=== PATIENT | female | born 1985 | race Caucasian/White ===

== ENCOUNTER 2016-06-23 09:19 | Emergency (ER) | payer OTHER ==
[2016-06-23 09:27] VITALS: TEMP 97.7; BMI 31.9
[2016-06-23] MEDS ORDERED: KETOROLAC TROMETHAMINE 30 MG/1 ML VIAL IVPUSH ONE (09:58)
[2016-06-23] MEDS ORDERED: SODIUM CHLORIDE 1,000 ML IV STA (09:58)
[2016-06-23] MEDS ORDERED: ONDANSETRON 4 MG/2 ML VIAL IVPUSH ONE (09:58)
--- NOTE | 2016-06-23 10:14 | PDOC ---
History of Present Illness - General Chief Complaint: Pain, Acute Stated Complaint: Flank pain, decreased urination, pain on urination Time Seen by Provider: 06/23/16 09:50 History Source: Patient Exam Limitations: No Limitations - History of Present Illness Travel History: No Initial Comments: 06/23/16 10:04 31-year-old female presents to ED with complaints of intermittent suprapubic pressure along with dysuria and frequency with a past 2 weeks now radiating to her bilateral flank area for the past 3 days associated with nausea and chills patient denies history of renal colic, UTI, irregular menses, or diarrhea. Patient also denies abdominal distention, diabetes, or recent illness. Timing/Duration: reports: getting worse Quality: reports: moderate, fullness, sharpness Abdominal Pain Onset Location: reports: suprapubic, flank Pain Radiation: reports: no radiation Activities at Onset: reports: none Aggravating Factors: improves with: Voiding Alleviating Factors: improves with: None Past History - Past Medical History Allergies/Adverse Reactions: Allergies Allergy/AdvReac Type Severity Reaction Status Date / Time No Known Allergies Allergy Verified 06/23/16 09:24 Home Medications: Ambulatory Orders Ibuprofen [Motrin -] 400 mg PO QID PRN 06/23/16 Disorders: Yes (,pyelonephritis 2013; nephrolithiasis 2013; freq uti's) Hypercholesterolemia: Yes Kidney Stones: Yes (b/l nephrolithiasis (2013)) - Reproductive History (#): 3 Para: 3 - Psycho/Social/Smoking Cessation Hx Anxiety: No Suicidal Ideation: No Smoking History: Never smoked Have you smoked in the past 12 months: No Information on smoking cessation initiated: No Hx Alcohol Use: No Drug/Substance Use Hx: No Substance Use Type: None Hx Substance Use Treatment: No Review of Systems - Review of Systems Able to Perform ROS?: Yes Constitutional: Yes: Chills, Fever HEENTM: No: Symptoms Reported Respiratory: No: Symptoms reported Cardiac (ROS): No: Symptoms Reported ABD/GI: Yes: Nausea : Yes: Dysuria, Frequency, Flank Pain Musculoskeletal: No: Symptoms Reported Integumentary: No: Symptoms Reported Neurological: No: Symptoms reported Endocrine: No: Symptoms Reported Hematologic/Lymphatic: No: Symptoms Reported *Physical Exam - Vital Signs Last Vital Signs Temp Pulse Resp BP Pulse Ox 97.7 F 81 18 123/80 100 06/23/16 09:22 06/23/16 09:22 06/23/16 09:22 06/23/16 09:22 06/23/16 09:22 - Physical Exam General Appearance: Yes: Nourished, Appropriately Dressed. No: Apparent Distress HEENT: positive: EOMI, MARU. negative: Pale Conjunctivae Neck: positive: Normal Thyroid, Supple Respiratory/Chest: positive: Lungs Clear, Normal Breath Sounds. negative: Respiratory Distress, Accessory Muscle Use Cardiovascular: positive: Regular Rhythm, Regular Rate. negative: Murmur Gastrointestinal/Abdominal: positive: Normal Bowel Sounds, Soft, Tenderness ( bilateral flank and mid suprapubic) Musculoskeletal: positive: CVA Tenderness (R), CVA Tenderness (L) Extremity: negative: Normal Capillary Refill, Pedal Edema Integumentary: positive: Normal Color, Warm, Moist Neurologic: positive: Motor Strength 5/5 (ambulatory) ED Treatment Course - LABORATORY CBC & Chemistry Diagram: 06/23/16 10:20 06/23/16 10:20 Medical Decision Making - Medical Decision Making 06/23/16 10:03 Pt with urinary frequency and pain for the past week now associated with flank pain nausea and chills. Patient had CVA tenderness on exam with normal vital signs. Patient concerning for pyelonephritis versus renal colic. Patient ordered for labs CBC, comp, urinalysis urine urine culture IV fluids, Zofran and Toradol. 06/23/16 11:17 Laboratory Tests 06/23/16 06/23/16 06/23/16 10:20 10:20 10:20 WBC 6.5 Hgb 13.8 D Hct 40.6 D Neutrophils % 54.8 D Sodium 140 Potassium 4.1 Chloride 109 H Carbon Dioxide 26 Anion Gap 5 L BUN 11 D Creatinine 0.6 Creat Clearance w eGFR > 60 Random Glucose 92 D Urine pH 5.0 Urine Ketones Negative Urine Blood 1+ H Urine Nitrite Negative Ur Leukocyte Esterase Negative Urine RBC 2 Urine WBC 2 Urine Bacteria Rare 06/23/16 14:08 CT shows unremarkable liver spleen pancreas gallbladder and adrenal gland. Both kidneys are within normal limits without evidence of hydronephrosis no or ureteral stone. Urinary bladder is partially distended. No stone is seen laying within the urinary bladder and there is no gross thickening of the 12th. Previously visualized mild stranding traumatic changes. Good tone all other seen. There is no evidence for small bowel obstruction . normal appendix and terminal ileum. No evidence of diverticulitis. Normal size uterus. Both ovaries were visualized with small cysts/follicles. Patient states feeling better. Patient be discharged home to follow-up with her PCP and will await urine culture. *DC/Admit/Observation/Transfer Diagnosis at time of Disposition: Bilateral flank pain, Dysuria - Discharge Dispostion Disposition: HOME Condition at time of disposition: Improved - Patient Instructions Printed Discharge Instructions: DI for Flank Pain Additional Instructions: You may receive a call in 2 days with your urine results and if positive you will start antibiotics at that time. Otherwise take Motrin 600 mg for discomfort as prescribed
[2016-06-23 10:31] LABS: URINE APPEARANCE SLCLOUDY; URINE BILIRUBIN NEGATIVE (NEGATIVE); URINE COLOR LTYELLOW; URINE GLUCOSE (UA) NEGATIVE (NEGATIVE); URINE KETONE NEGATIVE (NEGATIVE); URINE LEUK ESTERASE NEGATIVE (NEGATIVE); URINE NITRITE NEGATIVE (NEGATIVE); URINE PROTEIN NEGATIVE (NEGATIVE); URINE UROBILINOGEN NEGATIVE E.U./dl (0.2-1.0)
[2016-06-23 10:41] LABS: URINE BLOOD 1+ (NEGATIVE)
[2016-06-23 10:44] LABS: BASOPHIL 0.3 % (0-2.0); EOSINOPHIL 8.3 % (0-4.5); MCH 28.7 pg (25.7-33.7); MCHC 34.1 g/dl (32.0-36.0); MEAN CELL VOLUME 84.4 fl (80-96); MEAN PLT VOLUME 7.9 fl (7.5-11.1); NEUTROPHILS 54.8 % (42.8-82.8); PLATELET COUNT 220 K/MM3 (134-434); WHITE BLOOD COUNT 6.5 K/mm3 (4.0-10.0)
[2016-06-23 10:45] LABS: URINE BACTERIA RARE /hpf (NONE SEEN); URINE MUCUS RARE; URINE RBC 2 /hpf (0-3); URINE WBC 2 /hpf (3-5)
[2016-06-23 10:54] LABS: ALBUMIN 3.8 g/dl (3.4-5.0); ANION GAP 5 (8-16); CALCIUM 8.6 mg/dL (8.5-10.1); CO2 26 mmol/L (21-32); CREATININE 0.6 mg/dL (0.55-1.02); GLUCOSE,RANDOM 92 mg/dL (74-106); SGOT/AST 16 U/L (15-37); SGPT/ALT 20 U/L (12-78)
[2016-06-23 10:56] LABS: ALK PHOS 77 U/L (45-117); BILIRUBIN,TOTAL 0.4 mg/dL (0.2-1.0); TOT PROT 7.1 g/dl (6.4-8.2)
[2016-06-23 15:04] VITALS: BP 117/74; PULSE 84
--- NOTE | 2016-06-23 16:44 | PDOC ---
*Physical Exam - Vital Signs Last Vital Signs Temp Pulse Resp BP Pulse Ox 97.7 F 84 16 117/74 100 06/23/16 09:22 06/23/16 14:45 06/23/16 14:45 06/23/16 14:45 06/23/16 14:45 ED Treatment Course - LABORATORY CBC & Chemistry Diagram: 06/23/16 10:20 06/23/16 10:20 - ADDITIONAL ORDERS Additional order review: Laboratory Results 06/23/16 06/23/16 10:20 10:20 Sodium 140 Potassium 4.1 Chloride 109 H Carbon Dioxide 26 Anion Gap 5 L BUN 11 D Creatinine 0.6 Creat Clearance w eGFR > 60 Random Glucose 92 D Calcium 8.6 Total Bilirubin 0.4 D AST 16 D ALT 20 D Alkaline Phosphatase 77 D Total Protein 7.1 Albumin 3.8 D Urine Color Ltyellow Urine Appearance Slcloudy Urine pH 5.0 Ur Specific [place] 1.013 Urine Protein Negative Urine Glucose (UA) Negative Urine Ketones Negative Urine Blood 1+ H Urine Nitrite Negative Urine Bilirubin Negative Urine Urobilinogen Negative Ur Leukocyte Esterase Negative Urine RBC 2 Urine WBC 2 Ur Epithelial Cells Few Urine Bacteria Rare Urine Mucus Rare Urine HCG, Qual Negative 06/23/16 10:20 RBC 4.82 D MCV 84.4 MCHC 34.1 RDW 12.0 MPV 7.9 Neutrophils % 54.8 D Lymphocytes % 32.1 Monocytes % 4.5 Eosinophils % 8.3 H D Basophils % 0.3 D - Medications Given in the ED: ED Medications Discontinued Medications Generic Name Dose Route Start Last Admin Trade Name Freq PRN Reason Stop Dose Admin Sodium Chloride 1,000 mls @ 1,000 mls/hr 06/23/16 09:58 06/23/16 10:30 Normal Saline - IV 06/23/16 10:57 1,000 mls/hr ASDIR STA Administration Ketorolac Tromethamine 30 mg 06/23/16 09:58 06/23/16 10:30 Toradol Injection - IVPUSH 06/23/16 09:59 30 mg ONCE ONE Administration Ondansetron HCl 4 mg 06/23/16 09:58 06/23/16 10:30 Zofran Injection IVPUSH 06/23/16 09:59 4 mg ONCE ONE Administration Medical Decision Making - Medical Decision Making 06/23/16 16:44 Pt seen by Midlevel Provider under my direct supervision Ancillary studies reviewed I agree with plan as outlined by Midlevel Provider *DC/Admit/Observation/Transfer Diagnosis at time of Disposition: Bilateral flank pain, Dysuria - Discharge Dispostion Disposition: HOME Condition at time of disposition: Improved - Prescriptions Prescriptions: Ibuprofen [Motrin -] 600 mg PO TID PRN #21 tablet PRN Reason: Pain - Referrals - Patient Instructions Printed Discharge Instructions: DI for Flank Pain Additional Instructions: You may receive a call in 2 days with your urine results and if positive you will start antibiotics at that time. Otherwise take Motrin 600 mg for discomfort as prescribed - Post Discharge Activity
== END 2016-06-23 14:45 | disposition home or self-care (01) ==
LOC: JER 09:19
PROC: 3E0333Z Introduction of Anti-inflammatory into Peripheral Vein, Percutaneous Approach (ICD-10-PCS; principal; 2016-06-23)
PROC: 3E033GC Introduction of Other Therapeutic Substance into Peripheral Vein, Percutaneous Approach (ICD-10-PCS; 2016-06-23)
DX: R10.30 Lower abdominal pain, unspecified (principal)
CPT/HCPCS: 36415; 74176; 80053; 81003; 81015; 84703; 85025; 87086; 99282-25

== ENCOUNTER 2016-11-05 13:25 | Emergency (ER) | payer OTHER ==
[2016-11-05 13:40] VITALS: TEMP 98.6; BMI 34.0
--- NOTE | 2016-11-05 14:07 | PDOC ---
History of Present Illness - General History Source: Patient Exam Limitations: No Limitations - History of Present Illness Initial Comments: 11/05/16 14:17 The patient is a 31 year old female, with a significant past medical history of recurrent UTIs, nephrolithiasis (2013), pyelonephritis (2013) and hypertension, who presents to the emergency department with dizziness, left flank pain and nausea for 2 months. Patient states that her symptoms have progressively worsened which prompted her to present to the ED. Patient states that she has been taking anti inflammatory to alleviate the pain. She reports dysuria. Patient denies vomiting, diarrhea, constipation, dysuria, hematuria, vaginal discharge, vaginal bleeding and abdominal pain. PSH - tubal ligation (8 yrs ago) PCP- Dr. Cox <Shira Laurent - Last Filed: 11/05/16 14:17> - General History Source: Patient, Old Records Exam Limitations: No Limitations <Lian Escobedo - Last Filed: 11/05/16 16:21> - General Chief Complaint: Pain Stated Complaint: BACK PAIN Time Seen by Provider: 11/05/16 14:06 Past History <Shira Laurent - Last Filed: 11/05/16 14:17> - Past Medical History Disorders: Yes (,pyelonephritis 2013; nephrolithiasis 2013; freq uti's) Hypercholesterolemia: Yes Kidney Stones: Yes (b/l nephrolithiasis (2013)) - Reproductive History (#): 3 Para: 3 - Psycho/Social/Smoking Cessation Hx Anxiety: No Suicidal Ideation: No Smoking History: Never smoked Have you smoked in the past 12 months: No Information on smoking cessation initiated: No Hx Alcohol Use: No Drug/Substance Use Hx: No Substance Use Type: None Hx Substance Use Treatment: No <Lian Escobedo - Last Filed: 11/05/16 16:21> - Past Medical History Allergies/Adverse Reactions: Allergies Allergy/AdvReac Type Severity Reaction Status Date / Time No Known Allergies Allergy Verified 11/05/16 13:38 Home Medications: Ambulatory Orders Ibuprofen [Motrin -] 400 mg PO QID PRN 06/23/16 Ibuprofen [Motrin -] 600 mg PO TID PRN #21 tablet 06/23/16 Review of Systems - Review of Systems Able to Perform ROS?: Yes Comments:: 11/05/16 14:18 GENERAL/CONSTITUTIONAL: No fever or chills. No weakness. HEAD, EYES, EARS, NOSE AND THROAT: No change in vision. No ear pain or discharge. No sore throat. CARDIOVASCULAR: No chest pain or shortness of breath. RESPIRATORY: No cough, wheezing, or hemoptysis. GASTROINTESTINAL: (+)nausea. No vomiting, diarrhea or constipation. GENITOURINARY: No dysuria, frequency, or change in urination. MUSCULOSKELETAL: (+) left flank pain. No joint or muscle swelling or pain. No neck. SKIN: No rash NEUROLOGIC:(+)dizziness. No headache, vertigo, loss of consciousness, or change in strength/sensation. ENDOCRINE: No increased thirst. No abnormal weight change. HEMATOLOGIC/LYMPHATIC: No anemia, easy bleeding, or history of blood clots. ALLERGIC/IMMUNOLOGIC: No hives or skin allergy. <Shira Laurent - Last Filed: 11/05/16 14:17> *Physical Exam - Vital Signs Last Vital Signs Temp Pulse Resp BP Pulse Ox 98.6 F 73 18 150/90 100 11/05/16 13:38 11/05/16 13:38 11/05/16 13:38 11/05/16 13:38 11/05/16 13:38 - Physical Exam Comments: 11/05/16 14:19 GENERAL: Awake, alert, and fully oriented, in no acute distress HEAD: No signs of trauma EYES: PERRLA, EOMI, sclera anicteric, conjunctiva clear ENT: Auricles normal inspection, hearing grossly normal, nares patent, oropharynx clear without exudates. Moist mucosa NECK: Normal ROM, supple, no lymphadenopathy, JVD, or masses LUNGS: Breath sounds equal, clear to auscultation bilaterally. No wheezes, and no crackles HEART: Regular rate and rhythm, normal S1 and S2, no murmurs, rubs or gallops ABDOMEN: Soft, nontender, normoactive bowel sounds. No guarding, no rebound. No masses EXTREMITIES: Normal range of motion, no edema. No clubbing or cyanosis. No cords, erythema, or tenderness NEUROLOGICAL: Cranial nerves II through XII grossly intact. Normal speech, normal gait SKIN: Warm, Dry, normal turgor, no rashes or lesions noted. <Shira Laurent - Last Filed: 11/05/16 14:17> - Vital Signs Last Vital Signs Temp Pulse Resp BP Pulse Ox 98.6 F 73 18 150/90 100 11/05/16 13:38 11/05/16 13:38 11/05/16 13:38 11/05/16 13:38 11/05/16 13:38 <Lian Escobedo - Last Filed: 11/05/16 16:21> ED Treatment Course - LABORATORY CBC & Chemistry Diagram: 11/05/16 14:14 11/05/16 14:14 <Lian Escobedo - Last Filed: 11/05/16 16:21> Medical Decision Making - Medical Decision Making 11/05/16 14:25 31-year-old female with no past medical history presents to the emergency Department with complaints of 2 week history of dizziness, dysuria, intermittent nausea and right flank pain. She has had a BTL 8 years ago. Differential diagnosis includes but is not limited to: UTI, pyelonephritis, ovarian cyst, musculoskeletal pain, dehydration, toxic/metabolic derangement. Plan: 1. Labs 2. Urine analysis 3. Pain management 4. Antiemetics 5. Observe and reevaluate 11/05/16 16:19 Addendum: Labs are reviewed and are noted in the EMR. Urine analysis is negative. The patient had a CT scan of the abdomen and pelvis which was negative for acute intra-abdominal or pelvic pathology. The patient was reevaluated at this time and is feeling improved. The plan is to discharge home. Follow-up with primary care physician within the next 1-3 days and return to the ED if her symptoms persist, worsen, or new symptoms arise. <Lian Escobedo - Last Filed: 11/05/16 16:21> *DC/Admit/Observation/Transfer - Attestations Scribe Attestion: 11/05/16 14:19 Documentation prepared by RENAN Slaughter, acting as medical coordinator pesticide use for Lian Escobedo MD. <Shira Laurent - Last Filed: 11/05/16 14:17> - Discharge Dispostion Admit: No - Attestations Physician Attestion: 11/05/16 14:26 I, Dr. Lian Escobedo, attest that the scribes documentation that appears above has been prepared under my direction and personally reviewed by me in its entirety. I confirmed that the note above accurately reflects all work, treatment, procedures, and medical decision-making performed by me. <Lian Escobedo - Last Filed: 11/05/16 16:21> Diagnosis at time of Disposition: Right flank pain - Discharge Dispostion Disposition: HOME Condition at time of disposition: Stable - Patient Instructions Printed Discharge Instructions: DI for Low Back Pain Additional Instructions: Please follow-up with your primary care doctor within the next 1-3 days. Return to the emergency department if your symptoms persist, worsen, or new symptoms arise.
[2016-11-05] MEDS ORDERED: KETOROLAC TROMETHAMINE 30 MG/1 ML VIAL IVPUSH ONE (14:13)
[2016-11-05] MEDS ORDERED: SODIUM CHLORIDE 1,000 ML IV STA (14:13)
[2016-11-05] MEDS ORDERED: ONDANSETRON 4 MG/2 ML VIAL IVPUSH ONE (14:13)
[2016-11-05] MEDS ORDERED: KETOROLAC TROMETHAMINE 30 MG/1 ML VIAL ONE (14:15)
[2016-11-05] MEDS ORDERED: ONDANSETRON 4 MG/2 ML VIAL ONE (14:15)
[2016-11-05 14:32] LABS: BASOPHIL 0.5 % (0-2.0); EOSINOPHIL 5.4 % (0-4.5); MCH 29.5 pg (25.7-33.7); MCHC 34.9 g/dl (32.0-36.0); MEAN CELL VOLUME 84.4 fl (80-96); MEAN PLT VOLUME 7.6 fl (7.5-11.1); NEUTROPHILS 58.3 % (42.8-82.8); PLATELET COUNT 210 K/MM3 (134-434); RDW 12.1 % (11.6-15.6); WHITE BLOOD COUNT 8.6 K/mm3 (4.0-10.0)
[2016-11-05 14:33] LABS: URINE APPEARANCE SLCLOUDY; URINE BILIRUBIN NEGATIVE (NEGATIVE); URINE BLOOD NEGATIVE (NEGATIVE); URINE COLOR YELLOW; URINE GLUCOSE (UA) NEGATIVE (NEGATIVE); URINE KETONE NEGATIVE (NEGATIVE); URINE LEUK ESTERASE NEGATIVE (NEGATIVE); URINE NITRITE NEGATIVE (NEGATIVE); URINE PROTEIN NEGATIVE (NEGATIVE); URINE UROBILINOGEN NEGATIVE E.U./dl (0.2-1.0)
[2016-11-05 14:52] LABS: CALCIUM 9.1 mg/dL (8.5-10.1); COCKROFT - GAULT 186.745; CREATININE 0.6 mg/dL (0.55-1.02); MAGNESIUM 2.2 mg/dL (1.8-2.4); PHOSPHOROUS 3.4 mg/dL (2.5-4.9)
[2016-11-05 16:34] VITALS: BP 128/74; PULSE 78
== END 2016-11-05 16:35 | disposition home or self-care (01) ==
LOC: JER 13:25
PROC: 3E0333Z Introduction of Anti-inflammatory into Peripheral Vein, Percutaneous Approach (ICD-10-PCS; principal; 2016-11-05)
PROC: 3E033GC Introduction of Other Therapeutic Substance into Peripheral Vein, Percutaneous Approach (ICD-10-PCS; 2016-11-05)
DX: R10.31 Right lower quadrant pain (principal); Z87.440 Personal history of urinary (tract) infections; Z87.442 Personal history of urinary calculi
CPT/HCPCS: 36415; 74176-TC; 80048; 81003; 83735; 84100; 84703; 85025; 87086; 96374; 96375; 99285-25

== ENCOUNTER 2017-11-21 20:03 | Emergency (ER) | payer OTHER ==
[2017-11-21 20:11] VITALS: BP 119/69; PULSE 69; TEMP 98; BMI 26.6
--- NOTE | 2017-11-21 20:23 | PDOC ---
History of Present Illness - General Chief Complaint: Pain, Acute Stated Complaint: PAIN Time Seen by Provider: 11/21/17 20:14 - History of Present Illness Initial Comments: 11/21/17 20:21 31 yo F with h/o HTN, recurrent UTIs, nephrolithiasis (2013), pyelonephritis ( 2013) and, who p/w RLQ pain. Patient reports acute onset intermittent, crampy, RLQ pain and R flank pain x 2 weeks. No identifiable triggers or alleviators. Reports 3 episodes of non bilious non bloody emesis today. LMP 11/07. Denies F/C, CP, SOB, diarrhea, constipation, BPR, urinary complaints, vaginal bleeding/discharge, hematuria, weakness, lightheadedness, sensory changes. PMHx: as noted above. H/o tubal ligation (9 yrs ago). ROS: as noted above SHx: Denies Etoh, IVDA, tobacco use. Allergies: NKDA Past History - Past Medical History Allergies/Adverse Reactions: Allergies Allergy/AdvReac Type Severity Reaction Status Date / Time No Known Allergies Allergy Verified 11/21/17 20:06 Home Medications: Ambulatory Orders Ibuprofen [Motrin -] 400 mg PO QID PRN 06/23/16 Ibuprofen [Motrin -] 600 mg PO TID PRN #21 tablet 06/23/16 COPD: No Disorders: Yes (,pyelonephritis 2013; nephrolithiasis 2013; freq uti's) Hypercholesterolemia: Yes Kidney Stones: Yes (b/l nephrolithiasis (2013)) - Reproductive History (#): 3 Para: 3 - Suicide/Smoking/Psychosocial Hx Smoking History: Never smoked Have you smoked in the past 12 months: No Hx Alcohol Use: No Drug/Substance Use Hx: No Substance Use Type: None Hx Substance Use Treatment: No Review of Systems - Review of Systems Comments:: 11/21/17 20:22 GENERAL/CONSTITUTIONAL: No fever or chills. No weakness. HEAD, EYES, EARS, NOSE AND THROAT: No change in vision. No ear pain or discharge. No sore throat. CARDIOVASCULAR: No chest pain or shortness of breath RESPIRATORY: + nausea, vomiting, and abdominal pain. No diarrhea or constipation. GENITOURINARY: No dysuria, frequency, or change in urination. MUSCULOSKELETAL: No joint or muscle swelling or pain. No neck or back pain. SKIN: No rash NEUROLOGIC: No headache, vertigo, loss of consciousness, or change in strength/ sensation. ENDOCRINE: No increased thirst. No abnormal weight change HEMATOLOGIC/LYMPHATIC: No anemia, easy bleeding, or history of blood clots. ALLERGIC/IMMUNOLOGIC: No hives or skin allergy. *Physical Exam - Vital Signs Last Vital Signs Temp Pulse Resp BP Pulse Ox 98 F 69 20 119/69 98 11/21/17 20:06 11/21/17 20:06 11/21/17 20:06 11/21/17 20:06 11/21/17 20:06 - Physical Exam Comments: 11/21/17 20:22 GENERAL: Awake, alert, and fully oriented, in no acute distress HEAD: No signs of trauma, normocephalic, atraumatic EYES: PERRLA, EOMI, sclera anicteric, conjunctiva clear ENT: Hearing grossly normal, nares patent, oropharynx clear without exudates. Moist mucosa NECK: Normal ROM, supple, no lymphadenopathy, JVD, or masses LUNGS: No distress, speaks full sentences, clear to auscultation bilaterally HEART: Regular rate and rhythm, normal S1 and S2, no murmurs, rubs or gallops, peripheral pulses normal and equal bilaterally. ABDOMEN: + RLQ and R CVA ttp. Soft, normoactive bowel sounds. No guarding, no rebound. No masses. EXTREMITIES : Normal inspection, Normal range of motion, no edema. No clubbing or cyanosis. SKIN: Warm, Dry, normal turgor, no rashes or lesions noted ED Treatment Course - LABORATORY CBC & Chemistry Diagram: 11/21/17 21:30 11/21/17 21:30 Medical Decision Making - Medical Decision Making 11/21/17 21:32 31 yo F with h/o HTN, recurrent UTIs, nephrolithiasis (2013), pyelonephritis ( 2013) and, who p/w RLQ, R flank pain, and multiple episodes of emesis. VSS, AF. + RLQ and R CVA ttp. Possible nephrolithiasis vs. cystitis. Differential also includes pyelonephritis, colitis, appendicitis, ovarian pathology. Pain control , IVF, and abdominal imaging. ED Course. CBC, CMP, UA, Urine Preg CT AP- SPIRAL NS, Zofran, Toradol 11/21/17 22:10 CBC,CMP: Unremarkable 11/21/17 22:11 UA: 1 + Blood, 2 RBC, nitirite Neg Pt. signed out to night team. VSS. *DC/Admit/Observation/Transfer - Referrals Referrals: Sana Lauren MD [Primary Care Provider] - - Patient Instructions Additional Instructions: Please return to the emergency department with any new or worsening symptoms or concerns. Please follow up with your primary care physician within 72 hours. - Post Discharge Activity - Attestations Physician Attestion: 11/21/17 20:23 I attest to the information provided in this note.
[2017-11-21 20:38] LABS: URINE APPEARANCE CLEAR; URINE BILIRUBIN NEGATIVE (<2.0 mg/dL); URINE BLOOD 1+ (NEGATIVE); URINE COLOR LTYELLOW; URINE GLUCOSE (UA) NEGATIVE (NEGATIVE); URINE KETONE NEGATIVE (NEGATIVE); URINE LEUK ESTERASE NEGATIVE (NEGATIVE); URINE NITRITE NEGATIVE (NEGATIVE); URINE PROTEIN NEGATIVE (NEGATIVE); URINE UROBILINOGEN NEGATIVE mg/dL (0.2-1.0)
[2017-11-21 20:48] LABS: HCG,QUALITATIVE URINE NEGATIVE
[2017-11-21 20:55] LABS: EPI CELLS RARE /HPF (FEW); URINE MUCUS RARE
--- NOTE | 2017-11-21 21:12 | PDOC ---
Attending Attestation - HPI HPI: 11/21/17 21:13 The patient is a 32 year old female with a significant PMH of HTN, recurrent UTIs, nephrolithiasis (2013), pyelonephritis (2014) who presents to the emergency department with right flank pain. The patient describes the right flank pain as intermittent, mild in severity, with radiation to the right groin and associated nausea and vomiting. The patient reports a history of kidney stones in the past. The patient denies chest pain, shortness of breath, headache and dizziness. Denies fever, chills, diarrhea and constipation. Denies dysuria, frequency, urgency and hematuria. Allergies: NKA Past surgical history: H/o tubal ligation (9 yrs ago) Social history: No reported alcohol, drug, or cigarette use. PCP: Dr. Lauren - Physicial Exam PE: 11/21/17 21:13 GENERAL: Well-appearing, well-nourished. No apparent distress. HEENT: Normocephalic, atraumatic. PERRL, EOM intact. CARDIOVASCULAR: Normal S1, S2. Regular rate and rhythm. PULMONARY: Clear to auscultation bilaterally. ABDOMEN: Soft, non-distended, non-tender. BACK: (+) Mild tenderness to the right flank. EXTREMITIES: Normal ROM in all four extremities. No gross deformities. SKIN: Warm, dry. No rash NEUROLOGICAL: No focal neurological deficits. - Medical Decision Making 11/21/17 23:19 Imaging: Spiral-Renal CT scan Reported by: Dr. Tristan Impression: No evidence of urinary tract calculi or obstructive uropathy. Free fluid is identified within the cul-de-sac. The possibility of a ruptured ovarian cyst should be considered.
[2017-11-21] MEDS ORDERED: ONDANSETRON 4 MG/2 ML VIAL IVPUSH ONE (21:32)
[2017-11-21] MEDS ORDERED: KETOROLAC TROMETHAMINE 30 MG/1 ML VIAL IVPUSH ONE (21:32)
[2017-11-21] MEDS ORDERED: SODIUM CHLORIDE 1,000 ML IV STA (21:33)
[2017-11-21 21:39] LABS: BASO % 0.5 % (0-2.0); EOS % 8.4 % (0-4.5); HEMATOCRIT 37.9 % (32.4-45.2); HEMOGLOBIN 13.1 GM/dL (10.7-15.3); MCH 29.7 pg (25.7-33.7); MCHC 34.5 g/dl (32.0-36.0); MEAN CELL VOLUME 86.3 fl (80-96); MEAN PLT VOLUME 7.8 fl (7.5-11.1); MONO % 6.2 % (3.8-10.2); NEUT % 49.9 % (42.8-82.8); PLATELET COUNT 222 K/MM3 (134-434); RBC 4.39 M/mm3 (3.60-5.2); RDW 11.7 % (11.6-15.6); WHITE BLOOD COUNT 8.8 K/mm3 (4.0-10.0)
[2017-11-21] MEDS ORDERED: ONDANSETRON 4 MG/2 ML VIAL ONE (21:40)
[2017-11-21] MEDS ORDERED: KETOROLAC TROMETHAMINE 30 MG/1 ML VIAL ONE (21:40)
[2017-11-21 22:01] LABS: ALBUMIN 3.6 g/dl (3.4-5.0); ALK PHOS 76 U/L (45-117); ANION GAP 5 (8-16); BILIRUBIN,TOTAL 0.5 mg/dL (0.2-1.0); BLOOD UREA NITROGEN 20 mg/dL (7-18); CALCIUM 8.5 mg/dL (8.5-10.1); CHLORIDE 110 mmol/L (98-107); CO2 27 mmol/L (21-32); CREATININE 0.7 mg/dL (0.55-1.02); GLUCOSE,RANDOM 86 mg/dL (74-106); POTASSIUM 3.9 mmol/L (3.5-5.1); SGOT/AST 17 U/L (15-37); SGPT/ALT 18 U/L (12-78); SODIUM 142 mmol/L (136-145); TOT PROT 6.6 g/dl (6.4-8.2)
--- NOTE | 2017-11-22 01:21 | PDOC ---
*Physical Exam - Vital Signs Last Vital Signs Temp Pulse Resp BP Pulse Ox 98 F 69 20 119/69 98 11/21/17 20:06 11/21/17 20:06 11/21/17 20:06 11/21/17 20:06 11/21/17 20:06 ED Treatment Course - LABORATORY CBC & Chemistry Diagram: 11/21/17 21:30 11/21/17 21:30 - ADDITIONAL ORDERS Additional order review: Laboratory Results 11/21/17 11/21/17 21:30 20:13 Sodium 142 Potassium 3.9 Chloride 110 H Carbon Dioxide 27 Anion Gap 5 L BUN 20 H Creatinine 0.7 Creat Clearance w eGFR > 60 Random Glucose 86 Calcium 8.5 Total Bilirubin 0.5 D AST 17 ALT 18 Alkaline Phosphatase 76 Total Protein 6.6 Albumin 3.6 Urine Color Ltyellow Urine Appearance Clear Urine pH 6.0 Ur Specific [place] 1.016 Urine Protein Negative Urine Glucose (UA) Negative Urine Ketones Negative Urine Blood 1+ H Urine Nitrite Negative Urine Bilirubin Negative Urine Urobilinogen Negative Ur Leukocyte Esterase Negative Urine WBC (Auto) 4 Urine RBC (Auto) 2 Ur Epithelial Cells Rare Urine Mucus Rare Urine HCG, Qual Negative 11/21/17 21:30 RBC 4.39 MCV 86.3 MCHC 34.5 RDW 11.7 MPV 7.8 Neutrophils % 49.9 Lymphocytes % 35.0 Monocytes % 6.2 Eosinophils % 8.4 H Basophils % 0.5 - RADIOLOGY Radiology Studies Ordered: Category Date Time Status TRANSVAGINAL ULTRASOUND US [US] Stat Ultrasound 11/21/17 23:21 Taken - Medications Given in the ED: ED Medications Discontinued Medications Generic Name Dose Route Start Last Admin Trade Name Arnelq PRN Reason Stop Dose Admin Sodium Chloride 1,000 mls @ 1,000 mls/hr 11/21/17 21:33 11/21/17 21:43 Normal Saline - IV 11/21/17 22:32 1,000 mls/hr ASDIR STA Administration Ketorolac Tromethamine 30 mg 11/21/17 21:32 11/21/17 21:43 Toradol Injection - IVPUSH 11/21/17 21:33 30 mg ONCE ONE Administration Ondansetron HCl 4 mg 11/21/17 21:32 11/21/17 21:43 Zofran Injection IVPUSH 11/21/17 21:33 4 mg ONCE ONE Administration Medical Decision Making - Medical Decision Making 11/22/17 01:20 Transvaginal ultrasound showed a normal arterial and venous flow to both ovaries. There was a 3 cm left ovarian cyst with a small to moderate amount pelvic fluid , possibly partial cysts collapsed without any torsion CAT scan did not show any acute pathology, patient didn't have a fever, chills, patient has no elevated white count, and she does have ultrasound that shows findings that are consistent with left ovarian cyst rupture *DC/Admit/Observation/Transfer Diagnosis at time of Disposition: Right flank pain Ovarian cyst Qualifiers: Laterality: left Qualified Code(s): N83.202 - Unspecified ovarian cyst, left side - Discharge Dispostion Disposition: HOME Condition at time of disposition: Stable - Referrals Referrals: Sana Lauren MD [Primary Care Provider] - - Patient Instructions Printed Discharge Instructions: DI for Low Back Pain, DI for Ovarian Cyst Additional Instructions: Please return to the emergency department with any new or worsening symptoms or concerns. follow up with your internal recruiter - Post Discharge Activity
[2017-11-22] MEDS ORDERED: CYCLOBENZAPRINE HCL 10 MG TABLET (FP) PO ONE (01:28)
[2017-11-22] MEDS ORDERED: CYCLOBENZAPRINE HCL 10 MG TABLET (FP) ONE (01:29)
== END 2017-11-22 01:41 | disposition home or self-care (01) ==
LOC: JER 20:03
PROC: 3E0333Z Introduction of Anti-inflammatory into Peripheral Vein, Percutaneous Approach (ICD-10-PCS; principal; 2017-11-21)
PROC: 3E033GC Introduction of Other Therapeutic Substance into Peripheral Vein, Percutaneous Approach (ICD-10-PCS; 2017-11-21)
DX: N83.202 Unspecified ovarian cyst, left side (principal); Z87.442 Personal history of urinary calculi; Z87.440 Personal history of urinary (tract) infections; I10 Essential (primary) hypertension
CPT/HCPCS: 36415; 74176; 76830-TC; 80053; 81003; 81015; 84703; 85025; 96374; 96375; 99282-25; J7030

== ENCOUNTER 2018-12-18 20:40 | Emergency (ER) | payer OTHER ==
[2018-12-18 20:44] VITALS: BMI 28.6
--- NOTE | 2018-12-18 20:49 | PDOC ---
Rapid Medical Evaluation Time Seen by Provider: 12/18/18 20:41 Medical Evaluation: Allergies Allergy/AdvReac Type Severity Reaction Status Date / Time No Known Allergies Allergy Verified 11/21/17 20:06 12/18/18 20:41 Pt presents for fever, body aches and back pain s/p surgery 2 weeks for breast reduction and liposuction. She states that she also has upper back pain. Exam: (+) CVA tenderness b/l. Liposuction scars noted on the back, feel warm to the touch. Orders: labs, urine, ekg Pt to proceed to the ER for further evaluation Discharge Disposition - Diagnosis Bilateral flank pain - Referrals - Patient Instructions - Post Discharge Activity
[2018-12-18 22:17] LABS: BASO % 0.4 % (0-2.0); EOS % 1.5 % (0-4.5); HEMATOCRIT 34.9 % (32.4-45.2); HEMOGLOBIN 11.5 GM/dL (10.7-15.3); LYMPH % 17.7 % (8-40); MCH 29.8 pg (25.7-33.7); MEAN CELL VOLUME 90.2 fl (80-96); MEAN PLT VOLUME 7.4 fl (7.5-11.1); MONO % 7.3 % (3.8-10.2); NEUT % 73.1 % (42.8-82.8); PLATELET COUNT 235 K/MM3 (134-434); RBC 3.87 M/mm3 (3.60-5.2); RDW 13.7 % (11.6-15.6); WHITE BLOOD COUNT 8.2 K/mm3 (4.0-10.0)
[2018-12-18 22:38] LABS: ALBUMIN 2.9 g/dl (3.4-5.0); BILIRUBIN,TOTAL 0.5 mg/dL (0.2-1); BLOOD UREA NITROGEN 8.8 mg/dL (7-18); CREATININE 0.6 mg/dL (0.55-1.3); POTASSIUM 4.1 mmol/L (3.5-5.1); TOT PROT 5.9 g/dl (6.4-8.2)
[2018-12-18 22:39] LABS: INR 0.97 (0.83-1.09); PROTHROMBIN TIME (PATIENT) 11.5 SEC (9.7-13.0)
[2018-12-18 22:52] LABS: PH,URINE 5.5 (5.0-8.0); URINE APPEARANCE CLEAR; URINE BILIRUBIN NEGATIVE (NEGATIVE); URINE COLOR YELLOW; URINE GLUCOSE (UA) NEGATIVE (NEGATIVE); URINE KETONE NEGATIVE (NEGATIVE); URINE LEUK ESTERASE NEGATIVE (NEGATIVE); URINE NITRITE NEGATIVE (NEGATIVE); URINE PROTEIN NEGATIVE (NEGATIVE); URINE UROBILINOGEN 0.2 mg/dL (0.2-1.0)
--- NOTE | 2018-12-18 23:03 | PDOC ---
History of Present Illness - General Chief Complaint: SIRS, Suspected/Possible Stated Complaint: FEVER Time Seen by Provider: 12/18/18 20:41 History Source: Patient, Spouse Exam Limitations: Language Barrier (belarusian speaking, limited icelandic) - History of Present Illness Initial Comments: 12/18/18 23:42 Toan Roman is a 33yo previously healthy female presenting with breast and abdominal pain. She underwent breast reduction surgery and liposuction 2 weeks ago in [place]. No plastics follow up scheduled. Currently endorses subjective fevers, generalized weakness, body aches, and sharp stabbing pain around breasts, abdomen, and back. Took tylenol and tetracycline post surgery without symptom relief. No nausea, urinary/bowel changes. Past History - Past Medical History Allergies/Adverse Reactions: Allergies Allergy/AdvReac Type Severity Reaction Status Date / Time No Known Allergies Allergy Verified 12/18/18 20:44 Home Medications: Ambulatory Orders Ibuprofen [Motrin -] 400 mg PO QID PRN 06/23/16 Ibuprofen [Motrin -] 600 mg PO TID PRN #21 tablet 06/23/16 COPD: No Disorders: Yes (,pyelonephritis 2013; nephrolithiasis 2013; freq uti's) Hypercholesterolemia: Yes Kidney Stones: Yes (b/l nephrolithiasis (2013)) - Surgical History Abdominal Surgery: Yes (breast reduction, liposuction) - Reproductive History (#): 3 Para: 3 - Suicide/Smoking/Psychosocial Hx Smoking History: Never smoked Have you smoked in the past 12 months: No Hx Alcohol Use: No Drug/Substance Use Hx: No Substance Use Type: None Hx Substance Use Treatment: No Review of Systems - Review of Systems Able to Perform ROS?: Yes Is the patient limited Czech proficient: Yes Constitutional: Yes: Chills, Fever, Malaise. No: Loss of Appetite HEENTM: No: Eye Pain, Ear Pain, Nose Pain Respiratory: No: Cough, Shortness of Breath Cardiac (ROS): Yes: Chest Pain (around breast surgery incision sites). No: Edema, Palpitations, Chest Tightness ABD/GI: No: Constipated, Diarrhea, Nausea, Poor Appetite, Vomiting : No: Burning, Dysuria, Pain Musculoskeletal: Yes: Back Pain (around liposuction sites), Muscle Weakness. No : Muscle Pain Integumentary: Yes: Change in Color (black scabbing/scarring at incision sites) . No: Flushing, Pruritus, Rash Neurological: No: Headache, Numbness, Paresthesia Endocrine: No: Increased Thirst, Increased Urine *Physical Exam - Vital Signs Last Vital Signs Temp Pulse Resp BP Pulse Ox 98.7 F 108 H 18 116/77 97 12/18/18 20:41 12/18/18 20:41 12/18/18 20:41 12/18/18 20:41 12/18/18 20:41 - Physical Exam General Appearance: Yes: Nourished, Moderate Distress (shaking, lying in bed) HEENT: positive: MARU, Normal Voice. negative: Nasal Congestion Respiratory/Chest: positive: Chest Tender (black scabbing/scarred incision sites extending below areola bilaterally to below breast tissue ), Lungs Clear, Normal Breath Sounds. negative: Respiratory Distress, Crackles, Rales, Wheezing Cardiovascular: positive: Regular Rhythm, Regular Rate, S1, S2. negative: Murmur Gastrointestinal/Abdominal: positive: Normal Bowel Sounds, Tender (moderate tenderness to deep palpation throghout abdomen, specifically in RUQ. Tender to palpation around liposuction incision sites ), Flat, Soft. negative: Organomegaly, Guarding, Rebound Integumentary: positive: Normal Color, Warm. negative: Erythema, Diaphoresis, Rash, Swelling Neurologic: positive: Alert, Responsive. negative: Confused ED Treatment Course - LABORATORY CBC & Chemistry Diagram: 12/18/18 22:00 12/18/18 22:00 - ADDITIONAL ORDERS Additional order review: Laboratory Results 12/18/18 12/18/18 12/18/18 22:25 22:00 22:00 PT with INR 11.50 INR 0.97 Sodium 141 Potassium 4.1 Chloride 109 H Carbon Dioxide 28 Anion Gap 5 L BUN 8.8 Creatinine 0.6 Est GFR (CKD-EPI)AfAm 138.80 Est GFR (CKD-EPI)NonAf 119.76 Random Glucose 100 Calcium 8.0 L Total Bilirubin 0.5 AST 19 ALT 22 Alkaline Phosphatase 76 Total Protein 5.9 L Albumin 2.9 L Urine Color Yellow Urine Appearance Clear Urine pH 5.5 Ur Specific [place] 1.016 Urine Protein Negative Urine Glucose (UA) Negative Urine Ketones Negative Urine Blood Negative Urine Nitrite Negative Urine Bilirubin Negative Urine Urobilinogen 0.2 Ur Leukocyte Esterase Negative 12/18/18 22:00 RBC 3.87 MCV 90.2 MCHC 33.0 RDW 13.7 D MPV 7.4 L Neutrophils % 73.1 D Lymphocytes % 17.7 D Monocytes % 7.3 Eosinophils % 1.5 D Basophils % 0.4 Medical Decision Making - Critical Care Time Total Critical Care Time (minutes): 30 Critical Care Statement: The care of this patient involved high complexity decision making to prevent further life threatening deterioration of the patient 's condition and/or to evaluate & treat vital organ system(s) failure or risk of failure. - Medical Decision Making 12/18/18 23:43 Triage ordered CBC, chem, UA, HCG - returned normal Ordered rectal temp, cultures for fever, tachycardia. Ordered breast US, RUQ US where exquisitely tender. Given tylenol for pain Plan to call plastics, anticipate transferring to another facility with plastics. Toan Roman is a 33yo previously healthy female presenting with breast and abdominal pain. She underwent breast reduction surgery and liposuction 2 weeks ago in [place]. Currently endorses subjective fevers, generalized weakness , body aches, and sharp stabbing pain around breasts, abdomen, and back. Suspect sepsis secondary to cellulitis from breast/liposuction surgery complications based on fever, tachycardia, tenderness around incision surgery sites. Ultrasound ordered for concern for abscess and foreign body. Waiting for CXR, breast/RUQ results. Awaiting call from plastics. Signed out to QUEENIE Fernandez Resident Anticipate transfer to another facility for sepsis management and plastics surgery correction. *DC/Admit/Observation/Transfer Diagnosis at time of Disposition: Abdominal pain, acute, generalized - Referrals Referrals: Sapphire Ayala MD [Primary Care Provider] - - Patient Instructions - Post Discharge Activity
[2018-12-18 23:24] LABS: HCG,QUALITATIVE URINE Negative
[2018-12-18] MEDS ORDERED: ACETAMINOPHEN 1000 MG/100 ML VIAL (NON FORMULARY) IVPB ONE (23:31)
[2018-12-19] MEDS ORDERED: ACETAMINOPHEN INJECTION 100 ML IVPB ONE (00:03)
--- NOTE | 2018-12-19 00:20 | PDOC ---
*Physical Exam - Vital Signs Last Vital Signs Temp Pulse Resp BP Pulse Ox 98.7 F 108 H 18 116/77 97 12/18/18 20:41 12/18/18 20:41 12/18/18 20:41 12/18/18 20:41 12/18/18 20:41 ED Treatment Course - LABORATORY CBC & Chemistry Diagram: 12/18/18 22:00 12/18/18 22:00 - ADDITIONAL ORDERS Additional order review: Laboratory Results 12/18/18 12/18/18 12/18/18 22:25 22:00 22:00 PT with INR 11.50 INR 0.97 Sodium 141 Potassium 4.1 Chloride 109 H Carbon Dioxide 28 Anion Gap 5 L BUN 8.8 Creatinine 0.6 Est GFR (CKD-EPI)AfAm 138.80 Est GFR (CKD-EPI)NonAf 119.76 Random Glucose 100 Calcium 8.0 L Total Bilirubin 0.5 AST 19 ALT 22 Alkaline Phosphatase 76 Total Protein 5.9 L Albumin 2.9 L Urine Color Yellow Urine Appearance Clear Urine pH 5.5 Ur Specific [place] 1.016 Urine Protein Negative Urine Glucose (UA) Negative Urine Ketones Negative Urine Blood Negative Urine Nitrite Negative Urine Bilirubin Negative Urine Urobilinogen 0.2 Ur Leukocyte Esterase Negative Urine HCG, Qual Negative 12/18/18 22:00 RBC 3.87 MCV 90.2 MCHC 33.0 RDW 13.7 D MPV 7.4 L Neutrophils % 73.1 D Lymphocytes % 17.7 D Monocytes % 7.3 Eosinophils % 1.5 D Basophils % 0.4 - RADIOLOGY Radiology Studies Ordered: Category Date Time Status CHEST PA & LAT [RAD] Stat Radiology 12/18/18 23:42 Ordered ABDOMEN US -LIMITED [US] Stat Ultrasound 12/19/18 23:41 Ordered - Medications Given in the ED: ED Medications Discontinued Medications Generic Name Dose Route Start Last Admin Trade Name Freq PRN Reason Stop Dose Admin Acetaminophen 1,000 mg 12/18/18 23:31 12/19/18 00:13 Ofirmev Injection - IVPB 12/18/18 23:32 1,000 mg ONCE ONE Administration Medical Decision Making - Medical Decision Making 12/19/18 00:15 33F s/p breast reduction 2 weeks ago presents with subjective fevers and myalgias x 2 weeks. Rectal temp 101.2. Will obtain blood cx and lactic. Awaiting plastics callback, Dr. Sims. 12/19/18 02:23 Dr. Sims paged x [address] Suazo, plastic surgery at [facility], paged for transfer. Dr. Suazo accepts the transfer. *DC/Admit/Observation/Transfer Diagnosis at time of Disposition: Systemic inflammatory response syndrome (SIRS) - Discharge Dispostion Disposition: TRANSFER ACUTE CARE/OTHER HOSP Condition at time of disposition: Guarded Decision to Admit order: No - Referrals Referrals: Sapphire Ayala MD [Primary Care Provider] - - Patient Instructions - Post Discharge Activity - Transfer to Acute Care Facility Receiving Facility: [facility] ([facility]) Accepting Physician:: Dr. Suazo
[2018-12-19] MEDS ORDERED: VANCOMYCIN 1,000 MG in DEXTROSE 5%-WATER - 250 ML IVPB ONE (00:23)
[2018-12-19] MEDS ORDERED: PIPERACILLIN/TAZOB 4.5 GM 4.5 GM in DEXTROSE 5%-WATER 100 ML IVPB ONE (00:23)
[2018-12-19] MEDS ORDERED: PIPERACILLIN/TAZOB 4.5 GM 4.5 GM/100 ML BAG IVPB ONE (00:57)
[2018-12-19] MEDS ORDERED: VANCOMYCIN 1 GRAM (PRE-DOCKED) 1,000 MG/250 ML BAG IVPB ONE (00:58)
--- NOTE | 2018-12-19 01:59 | PDOC ---
Documentation entered by Audrey Maxwell SCRIBE, acting as scribe for Kylie Tapia DO. Kylie Tapia DO: This documentation has been prepared by the Hans thomas Adrianna, SCRIBE, under my direction and personally reviewed by me in its entirety. I confirm that the documentation accurately reflects all work, treatment, procedures, and medical decision making performed by me. Attending Attestation - Resident Resident Name: Peterson Freedman - ED Attending Attestation I have performed the following: I have examined & evaluated the patient, The case was reviewed & discussed with the resident, I agree w/resident's findings & plan - HPI HPI: The patient is a 33 year old female, with a significant PMH of HTN, recurrent UTIS, nephrolithiasis, pyelonephritis, who presents to the ED for evaluation of breast pain and abdominal pain for 2 weeks. Patient complains of bilateral breast pain and swelling (R>L) and fever, which has been progressively worsening since her breast reduction 2 weeks ago in [place]. Patient additionally complains of RUQ abdominal pain s/p liposuction at the same time. Patient did not follow up with her surgeon, and does not have a good reason why. Allergies: NKA, NKDA Past surgical history: Liposuction and breast reduction (2 weeks ago), H/o tubal ligation (9 yrs ago) Social history: No reported alcohol, drug, or cigarette use. PCP: Dr. Lauren 12/18/18 23:44 - Physicial Exam PE: GENERAL: Awake, in no acute distress HEAD: No signs of trauma EYES: ENT:clear without exudates. Moist mucosa NECK: Normal ROM, LUNGS:. Normal work of breathing. HEART: Regular rate and rhythm, ABDOMEN: Soft, nondistended CHEST WALL: BACK: No midline tenderness. EXTREMITIES:. No erythema, or tenderness NEUROLOGICAL: Alert, SKIN: Warm, Dry 12/18/18 23:45 12/19/18 01:54 see resident exam for additional - Medical Decision Making 12/19/18 01:55 33-year-old female status post plastic surgery now with fever and pain Ultrasounds of the right upper quadrant and breasts show no collection or acute gallbladder disease Multiple calls placed to plastics on-call without response Plan for call to [facility] for plastics consultation and probable transfer Antibiotics with MRSA coverage started in the emergency department
[2018-12-19 04:04] VITALS: BP 116/76; PULSE 92; TEMP 97.8
--- NOTE | 2018-12-20 10:22 | EKG ---
Test Reason : Blood Pressure : / mmHG Vent. Rate : 092 BPM Atrial Rate : 092 BPM P-R Int : 148 ms QRS Dur : 086 ms QT Int : 338 ms P-R-T Axes : 046 012 020 degrees QTc Int : 417 ms NORMAL SINUS RHYTHM LOW VOLTAGE QRS NONSPECIFIC T WAVE ABNORMALITY Confirmed by BREANNA SNYDER MD ([id number]) on 12/20/2018 10:22:00 AM Referred By: Confirmed By:BREANNA SNYDER MD
== END 2018-12-19 04:05 | disposition short-term general hospital (02) ==
LOC: JER 20:40
PROC: 3E03329 Introduction of Other Anti-infective into Peripheral Vein, Percutaneous Approach (ICD-10-PCS; principal; 2018-12-18)
PROC: 3E03329 Introduction of Other Anti-infective into Peripheral Vein, Percutaneous Approach (ICD-10-PCS; 2018-12-18)
PROC: 3E033NZ Introduction of Analgesics, Hypnotics, Sedatives into Peripheral Vein, Percutaneous Approach (ICD-10-PCS; 2018-12-18)
DX: G89.18 Other acute postprocedural pain (principal); R65.10 Systemic inflammatory response syndrome (SIRS) of non-infectious origin without acute organ dysfunction; Z98.890 Other specified postprocedural states
CPT/HCPCS: 36415; 71046-TC-FY; 76642-TC-50; 76705-TC; 80053; 81003; 83690; 84703; 85025; 85610; 87040; 87086; 93005; 93010; 96365; 96367; 96375; 99283-25; J0131